=== PATIENT | female | born 1970 | race Two or more races ===

== ENCOUNTER 2023-07-09 15:08 | Emergency (ER) | payer OTHER ==
[2023-07-09 15:28] VITALS: BP 117/78; PULSE 88; RESP 18; TEMP 98.2; BMI 26.6
[2023-07-09 16:32] LABS: EPI CELLS 11 /uL (0-25.1); HCG,QUALITATIVE URINE Negative; HYALINE CASTS 0 /uL (0-3.1); URINE APPEARANCE CLEAR; URINE BACTERIA 176 /uL (0-1359); URINE BILIRUBIN NEGATIVE (NEGATIVE); URINE COLOR YELLOW; URINE GLUCOSE (UA) NEGATIVE (NEGATIVE); URINE KETONE NEGATIVE (NEGATIVE); URINE LEUK ESTERASE TRACE (NEGATIVE); URINE NITRITE NEGATIVE (NEGATIVE); URINE PROTEIN NEGATIVE (NEGATIVE); URINE RBC 11 /uL (0-23.9); URINE UROBILINOGEN 0.2 mg/dL (0.2-1.0); URINE WBC 16 /uL (0-25.8)
[2023-07-09] MEDS ORDERED: ACETAMINOPHEN INJECTION 100 ML IVPB ONE (17:37)
[2023-07-09] MEDS: SODIUM CHLORIDE 1,000 ML IV STA (17:52)
[2023-07-09] MEDS: ACETAMINOPHEN 1000 MG/100 ML BAG IVPB ONE (17:53)
[2023-07-09 18:00] LABS: BASO % 1.1 % (0-2.0); EOS % 5.6 % (0-4.5); HEMATOCRIT 39.8 % (32.4-45.2); HEMOGLOBIN 13.3 GM/dL (10.7-15.3); MCH 29.6 pg (25.7-33.7); MCHC 33.5 g/dl (32.0-36.0); MEAN CELL VOLUME 88.3 fl (80-96); MEAN PLT VOLUME 9.8 fl (7.5-11.1); MONO % 6.7 % (3.8-10.2); NEUT % 60.6 % (42.8-82.8); PLATELET COUNT 288 10^3/uL (134-434); RBC 4.51 M/mm3 (3.60-5.2); RDW 14.4 % (11.6-15.6); WHITE BLOOD COUNT 8.1 K/mm3 (4.0-10.0)
[2023-07-09 18:17] LABS: POTASSIUM 4.1 mmol/L (3.5-5.1)
[2023-07-09 18:19] LABS: ALBUMIN 3.8 g/dl (3.4-5.0); CALCIUM 9.4 mg/dL (8.5-10.1)
[2023-07-09 18:23] LABS: CREATININE 0.8 mg/dL (0.55-1.3)
[2023-07-09 18:24] LABS: BILIRUBIN,TOTAL 0.5 mg/dL (0.2-1); TOT PROT 7.6 g/dl (6.4-8.2)
[2023-07-09] MEDS ORDERED: KETOROLAC TROMETHAMINE 15 MG/ML VIAL ONE (19:05)
[2023-07-09] MEDS: KETOROLAC TROMETHAMINE 15 MG/ML VIAL IVPUSH ONE (19:08)
== END 2023-07-09 20:55 | disposition home or self-care (01) ==
LOC: JER 15:08
PROC: 3E033NZ Introduction of Analgesics, Hypnotics, Sedatives into Peripheral Vein, Percutaneous Approach (ICD-10-PCS; principal; 2023-07-09)
PROC: 3E0333Z Introduction of Anti-inflammatory into Peripheral Vein, Percutaneous Approach (ICD-10-PCS; 2023-07-09)
PROC: 3E0337Z Introduction of Electrolytic and Water Balance Substance into Peripheral Vein, Percutaneous Approach (ICD-10-PCS; 2023-07-09)
DX: N20.0 Calculus of kidney (principal); R10.13 Epigastric pain; R11.0 Nausea; R31.9 Hematuria, unspecified
CPT/HCPCS: 36415; 74176-TC; 80053; 81003; 83690; 84703; 85025; 87086; 93005; 93010; 99285-25; J0131